=== PATIENT | male | born 1935 | race Caucasian/White ===

== ENCOUNTER 2016-11-24 08:06 | Day surgery (SDC) | payer OTHER, MEDICAID ==
[~2016-11-24] VITALS: Ht 185.4 cm; Wt 92.5 kg
[2016-11-24] MEDS ORDERED: CEFAZOLIN 1 GM IVPB PREMIX 50 ML IV ONE (09:39)
[2016-11-24] MEDS ORDERED: ceFAZolin SODIUM 1 GM in D5W 50 ML IV ONE (09:45)
[2016-11-24 09:59] LABS: PROTHROMBIN TIME 10.8 SECS (9.5-12.5)
[2016-11-24 10:19] LABS: BASOPHILS % (AUTO) 0.2 % (0.0-2.0); EOSINOPHILS # (AUTO) 0.2 K/uL (0.0-0.4); HEMATOCRIT 36.7 % (36-54); HEMOGLOBIN 12.7 g/dL (14.0-18.0); LYMPHOCYTES # (AUTO) 2.3 K/uL (1.0-5.5); LYMPHOCYTES % (AUTO) 22.4 % (20.5-51.5); MEAN CORPUSCULAR HEMOGLOBIN 33 pg (27-31); MEAN CORPUSCULAR HGB CONC 35 % (32-36); MEAN CORPUSCULAR VOLUME 95 fL (79.0-98.0); MONOCYTES # (AUTO) 0.3 K/uL (0.0-1.0); MONOCYTES % (AUTO) 3.3 % (1.7-9.3); NEUTROPHILS # (AUTO) 7.3 K/uL (1.8-7.7); NEUTROPHILS % (AUTO) 72.1 % (40.0-70.0); PLATELET COUNT (AUTO) 226 K/uL (130-430); RED BLOOD CELL COUNT(AUTO) 3.86 MIL/uL (4.2-6.2); RED CELL DISTRIBUTION WIDTH 12.6 % (9.0-15.0); WHITE BLOOD COUNT (AUTO) 10.1 K/uL (4.8-10.8)
[2016-11-24] MEDS: fentaNYL CITRATE/PF 100 MCG/2 ML AMP ONE ×2 (10:26→10:28)
[2016-11-24] MEDS: MIDAZOLAM HCL 5 MG/5 ML VIAL ONE ×2 (10:26→10:28)
[2016-11-24 13:28] VITALS: BP_SYST 165
== END 2016-11-24 12:00 | disposition home or self-care (01) ==
LOC: SDS 08:06
PROVIDERS: ATTEND Internal Medicine
DX: R13.10 Dysphagia, unspecified (principal); I50.9 Heart failure, unspecified; I25.10 Atherosclerotic heart disease of native coronary artery without angina pectoris; I63.9 Cerebral infarction, unspecified; E11.9 Type 2 diabetes mellitus without complications
CPT/HCPCS: 36415; 43239; 43246; 85025; 85610; 88305; 88313; J0690; J2250; J3010; J7060